=== PATIENT | female | born 1995 | race Caucasian/White ===

== ENCOUNTER 2018-10-21 19:59 | Emergency (ER) | payer OTHER ==
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
[2018-10-21] MEDS ORDERED: TYLENOL PO ONE (22:12)
[2018-10-21] MEDS ORDERED: IBUPROFEN PO ONE (22:12)
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
[2018-10-22 00:09] VITALS: BP 101/72
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
== END 2018-10-22 01:38 | disposition home or self-care (01) ==
LOC: ED 19:59
DX: S93.401A Sprain of unspecified ligament of right ankle, initial encounter (principal); M62.838 Other muscle spasm; M25.512 Pain in left shoulder; M25.511 Pain in right shoulder; V49.59XA Passenger injured in collision with other motor vehicles in traffic accident, initial encounter; Y93.89 Activity, other specified; Y92.410 Unspecified street and highway as the place of occurrence of the external cause; Y99.8 Other external cause status
CPT/HCPCS: 72040